=== PATIENT | male | born 1980 | race Caucasian/White ===

== ENCOUNTER → 2019-06-22 | Outpatient (CLI) | payer OTHER ==
[~2019-06-22] MED LIST: CYCL-331 PO; OXYC15TA61 PO; PREG300C PO
[2019-06-22 08:20] VITALS: BP 115/74
--- NOTE | 2019-06-22 08:26 | NUR ---
pt has not taken ABX in the last 4 weeks
== END | disposition home or self-care (01) ==
LOC: SURG 08:05
PROVIDERS: ATTEND Anesthesiology Pain Medicine
DX: C41.2 Malignant neoplasm of vertebral column (principal); M54.16 Radiculopathy, lumbar region; M19.90 Unspecified osteoarthritis, unspecified site; F41.9 Anxiety disorder, unspecified; F32.9 Major depressive disorder, single episode, unspecified; Z79.891 Long term (current) use of opiate analgesic; Z79.899 Other long term (current) drug therapy
CPT/HCPCS: 62323; 99214